=== PATIENT | male | born 1970 | race Caucasian/White ===

== ENCOUNTER 2017-09-05 12:17 | Emergency (ER) | payer OTHER ==
[~2017-09-05] VITALS: Ht 177.8 cm; Wt 102.1 kg
[~2017-09-05 12:17] MED LIST: ACYC800 PO; BACL10 PO; CEPH500 PO; CRUTCH4 USE; CYCL10; GABA400; HYDACE5 PO; HYDACE5325 PO; NAPR500 PO; NAPR500EC PO; PENVK250 PO; PREG200 PO; SULTRIDS PO; TRAM50 PO; Ultram50 MG PO
[2017-09-05] MEDS ORDERED: Naprosyn500 MG PO (13:37)
[2017-09-05] MEDS ORDERED: CYCL10 PO (13:37)
== END 2017-09-05 13:44 | disposition home or self-care (01) ==
LOC: ER 12:17
DX: G89.29 Other chronic pain (principal); M54.5 Low back pain; F17.200 Nicotine dependence, unspecified, uncomplicated
CPT/HCPCS: 96372; 99283-25; J1885

== ENCOUNTER 2024-08-08 07:06 | Inpatient (IN) | payer OTHER ==
[~2024-08-08] VITALS: Ht 180.3 cm; Wt 120.0 kg
[~2024-08-08 07:06] MED LIST changes: +Augmentin 875-1 EACH PO; +CYCL10 PO; +Naprosyn500 MG PO
[2024-08-08] MEDS ORDERED: NS 1,000 ML IV SCH (08:15)
[2024-08-08] MEDS ORDERED: Ketorolac Tromethamine 15mg Vial IV ONE (08:15)
[2024-08-08 08:29] LABS: BASOPHILS ABSOLUTE AUTO 0.12 K/mm3 (0.00-0.23); BASOPHILS PERCENT AUTO 1 % (0-2); EOSINOPHILS PERCENT AUTO 1 % (0-6); Hematocrit 44.1 % (37.0-53.0); Hemoglobin 15.4 g/dL (13.5-17.5); IMMATURE GRAN PERCENT AUTO 1 % (0-1); LYMPHOCYTES ABSOLUTE AUTO 1.72 K/mm3 (0.84-5.20); LYMPHOCYTES PERCENT AUTO 8 % (21-46); MONOCYTES ABSOLUTE AUTO 1.84 K/mm3 (0.16-1.47); MONOCYTES PERCENT AUTO 9 % (4-13); Mean Corpuscular HGB 28.8 pg (26.0-34.0); Mean Corpuscular HGB Conc 34.9 g/dL (31.5-36.5); Mean Corpuscular Volume 82 fL (80-100); NEUTROPHILS ABSOLUTE AUTO 17.34 K/mm3 (1.96-9.15); NEUTROPHILS PERCENT AUTO 82 % (41-73); Platelet Count 375 K/mm3 (150-400); RDW Coefficient Variation 12.6 % (11.7-14.2); RDW Standard Deviation 38.3 fL (35.1-46.3); Red Blood Cell Count 5.35 M/mm3 (4.30-5.90); White Blood Cell Count 21.22 K/mm3 (4.00-11.30)
[2024-08-08 08:47] LABS: Albumin, Blood 3.7 g/dL (3.4-5.0); Albumin/Globulin Ratio 0.8 (0.8-1.8); Bilirubin, Total 0.5 mg/dL (0.1-1.0); Calcium, Blood 10.2 mg/dL (8.5-10.1); Creatinine, Blood 0.71 mg/dL (0.60-1.20); Globulin, Blood 4.8 g/dL (2.2-4.0); Potassium, Blood 4.1 mmol/L (3.5-5.5); Total Protein, Blood 8.5 g/dL (6.4-8.2)
[2024-08-08] MEDS ORDERED: CefTRIAXone Sodium 1,000 MG in NS 100 ML IV ONE (09:15)
[2024-08-08 09:25] LABS: Source, Urine Voided
[2024-08-08 09:36] LABS: Appearance, Urine Clear (Clear); Bilirubin, Urine Neg (Neg); Blood, Urine Neg (Neg); Color, Urine Yellow (P-Yellow); Glucose Qualitative, Urine 4+ (Neg); Ketones, Urine Neg (Neg); Leukocyte Esterase, Urine Neg (Neg); Nitrite, Urine Neg (Neg); Protein, Urine 2+ (Neg); Specific Gravity, Urine 1.015 (1.003-1.022); Urobilinogen, Urine 1+ (Normal)
[2024-08-08 09:38] LABS: Bacteria Rare /hpf; Red Blood Cells, Urine 0-2 /hpf (0-2); Squamous Epithelial Cells Rare /hpf (Few); White Blood Cells, Urine 0-2 /hpf (0-5)
[2024-08-08] MEDS ORDERED: Vancomycin HCL 2,000 MG in NS 500 ML IV ONE (10:00)
[2024-08-08 10:26] LABS: U Amphetamine Screen Not Detected; U Barbituate Screen Not Detected; U Benzodiazapine Screen Not Detected; U Buprenorphine Screen Not Detected; U Cannabinoids Screen DETECTED; U Cocaine Screen Not Detected; U Methadone Screen Not Detected; U Methamphetamine Screen Not Detected; U Opiates Screen Not Detected; U Oxycodone Screen Not Detected; U Phencyclidine Screen Not Detected
[2024-08-08] MEDS ORDERED: Acetaminophen 500 MG Tab PO PRN (11:15)
[2024-08-08] MEDS ORDERED: OxyCODONE HCL 5 MG TAB PO PRN (11:15)
[2024-08-08] MEDS ORDERED: Lactated Ringer's 1,000 ML IV SCH (11:20)
[2024-08-08] MEDS ORDERED: Polyethylene Glycol 3350 17 gm PO PRN (11:20)
[2024-08-08] MEDS ORDERED: Ketorolac Tromethamine 15mg Vial IV PRN (14:00)
[2024-08-08 15:16] VITALS: BP 142/82
--- NOTE | 2024-08-08 17:43 | NUR ---
1600 WHEN PATIENT WAS ASKED ABOUT TOBACCO/IGNITION SOURCES BECAME UPSET WHEN INFORMED HE COULD NOT SMOKE. PT OFFERED NICOTINE PATCH IF ORDERED BY PHYSICIAN. PT DENIES HAVING CIGARETTES OR LIGHTERS WITH HIM BUT STATED "WHY ARE YOU ASKING ME THAT" PT INFORMED OF NO SMOKING, NO FLAMMABLES ALLOWED AT FACILITY. 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 PT INFORMED THAT THIS WILL BE RETURNED TO HIM AT DISCHARGE
[2024-08-08] MEDS ORDERED: Nicotine 21 MG PATCH TOP PRN (18:05)
[2024-08-08 19:16] VITALS: BP 136/77
[2024-08-08] MEDS ORDERED: Docusate Sodium/Senna 1 Tab PO SCH (21:00)
[2024-08-08] MEDS ORDERED: Lactobacil 2-S.Thermo-Bifido 1 1 Cap PO SCH (21:00)
[2024-08-08] MEDS ORDERED: NS 250 ML IV PRN (21:25)
[2024-08-08] MEDS ORDERED: Vancomycin HCL 2,000 MG in NS 500 ML IV SCH (22:00)
[2024-08-09] VITALS (11 sets, daily range): BP systolic 104–139; BP diastolic 57–89
--- NOTE | 2024-08-09 04:13 | NUR ---
SHIFT SUMMARY PATIENT NPO FOR PROCEDURE. ALERT ORIENTED AND INDEPENDENT IN ROOM. DENIES CHEST PAIN, SOB, AND N/V. AFEBRILE. REPORTED BACK PAIN X 2 AT ABSCESS SITE. OXYCODONE 5 MG GIVEN WITH GOOD EFFECT AND IV TORADOL 15 MG ALTERNATING. PIV INTACT. IV ABX INFUSED. NICOTINE PATCH PLACED PER ORDER AND PATIENT REPORTS ITS WORKING. CALL LIGHT IN REACH. BED IN LOWEST POSITION. WILL CONTINUE TO MONITOR UNTIL DAY SHIFT NURSE ASSUMES CARE.
[2024-08-09 04:53] LABS: Hemoglobin 12.8 g/dL (13.5-17.5); Mean Corpuscular HGB 28.8 pg (26.0-34.0); Mean Corpuscular HGB Conc 34.6 g/dL (31.5-36.5); Mean Corpuscular Volume 83 fL (80-100); Mean Platelet Volume 8.8 fL (9.1-12.4); Platelet Count 296 K/mm3 (150-400); RDW Coefficient Variation 12.6 % (11.7-14.2); RDW Standard Deviation 38.2 fL (35.1-46.3); Red Blood Cell Count 4.44 M/mm3 (4.30-5.90); White Blood Cell Count 16.01 K/mm3 (4.00-11.30)
--- NOTE | 2024-08-09 05:20 | NUR ---
PATIENT FEBRILE 100.8 AND TYLENOL 500 MG GIVEN PER EMAR. RECHECK 98.3. WCTM.
[2024-08-09 05:30] LABS: Albumin, Blood 2.8 g/dL (3.4-5.0); Anion Gap 6 mmol/L (3-11); Blood Urea Nitrogen 13 mg/dL (8-24); Bun/Creatinine Ratio 19.8 (12.0-20.0); CO2, Blood 25 mmol/L (21-32); Chloride, Blood 103 mmol/L (98-108); Creatinine, Blood 0.66 mg/dL (0.60-1.20); Glomerular Filtration Rate 114 (60-); Glucose, Blood 305 mg/dL (70-99); Magnesium, Blood 2.1 mg/dL (1.6-2.4); Phosphorus, Blood 2.7 mg/dL (2.5-4.9); Potassium, Blood 3.8 mmol/L (3.5-5.5); Sodium, Blood 130 mmol/L (136-145)
[2024-08-09] MEDS ORDERED: Multivitamins 1 Tab PO SCH (09:00)
[2024-08-09] MEDS ORDERED: Lactated Ringer's 1,000 ML IV SCH ×2 (10:05→10:50)
--- NOTE | 2024-08-09 10:25 | NUR ---
INTO SDS VIA WHEELCHAIR. PT REPORTS 4/10 PAIN TO UPPER BACK WOUND. INFECTIOUS DISEASE-JEFRY CONTACTED-STANDARD PRECAUTIONS REQUIRED. HISTORY AND ALLERGIES REVIEWED. LUNGS CLEAR. PT IS A SMOKER-DUO NEB GIVEN PER DR. DASH ORDER. NPO STATUS CONFIRMED.
[2024-08-09] MEDS ORDERED: Ipratropium/Albuterol SulF 2.5-0.5MG/3 ML Amp INH ONE (10:30)
--- NOTE | 2024-08-09 10:30 | NUR ---
#20 PIV TO RIGHT AC C/D/I-FLUSHES WELL.
[2024-08-09] MEDS ORDERED: propofoL 40 ML IV ONE (10:36)
[2024-08-09] MEDS ORDERED: Lidocaine HCl 1% 5 ML SYR INJ ONE (10:50)
[2024-08-09] MEDS ORDERED: HYDROmorphone HCl/Pf 1MG SYR IV PRN (10:50)
[2024-08-09] MEDS ORDERED: Albuterol 2.5 MG/3 ML VIAL INH ONE (10:50)
[2024-08-09] MEDS ORDERED: Morphine Sulfate 4 MG/1 ML Injection IV PRN (10:55)
[2024-08-09] MEDS ORDERED: FentaNYL Citrate 50 MCG/ML 2 ML Injection IV PRN (10:55)
[2024-08-09] MEDS ORDERED: Ondansetron HCl 2 MG / ML 2ML Vial IV PRN (10:55)
[2024-08-09] MEDS ORDERED: ePHEDrine Sulfate 50 MG/ML 1ML Injection IV PRN (10:55)
[2024-08-09] MEDS ORDERED: Ketorolac Tromethamine 30mg Vial IV PRN (11:00)
[2024-08-09] MEDS ORDERED: FentaNYL Citrate 50 MCG/ML 2 ML Injection ONE (11:00)
[2024-08-09] MEDS ORDERED: Bupivacaine 0.5% HCl 5 MG/ML 30MLVIAL ONE (11:14)
[2024-08-09] MEDS ORDERED: Metoclopramide HCl 5MG / ML 2ML Vial ONE (11:15)
[2024-08-09] MEDS ORDERED: Ondansetron HCl 2 MG / ML 2ML Vial ONE ×2 (11:15→11:38)
[2024-08-09] MEDS ORDERED: Insulin Human Lispro 100 Units/ML 3ML Syringe SC SCH (11:30)
[2024-08-09] MEDS ORDERED: Enoxaparin 40 MG/0.4 ML SYR SC SCH (12:00)
--- NOTE | 2024-08-09 18:32 | NUR ---
SHIFT SUMMARY: PATIENT A+0 X4. IND IN ROOM. PATIENT HAD I AND D DONE BY SODER. DRESSING TO L SHOULDER BLADE CDI. PATIENT NOTED TO COMPLAIN OF PAIN THIS SHIFT, MEDICATED PER EMAR. PATIENTS LUNGS CLEAR. S1 S2 HEARD ON ASCULATION. POSITIVE BLOOD CULTURES X1 c GRAM POSITIVE COCCI c CLUSTERS. PATIENT CONTINUES c ANTIBIOTICS. VANCO GIVEN EARLIER THIS AM IN SURG. SALINE LOCKED AT THIS TIME. PATIENT STARTED ON LOW SLIDING SCALE THIS SHIFT. INSULIN HAS BEEN DOSED ACCORDINGLY. PLAN OF CARE ONGOING.
[2024-08-09 21:27] LABS: Vancomycin, Trough 8.5 ug/mL (5.0-10.0)
[2024-08-09] MEDS ORDERED: Vancomycin HCL 1,500 MG in NS 250 ML IV SCH (22:00)
[2024-08-10 05:18] VITALS: BP 125/86
--- NOTE | 2024-08-10 05:40 | NUR ---
SHIFT SUMMARY PATIENT IS ALERT AND ORIENTED. PATIENT HAS HAD NO ACUTE EVENTS THIS SHIFT. VITAL SIGNS REVIEWED. PATIENT HAS BEEN IND IN ROOM. IV ABX INFUSED ORDERED. PATIENT HAS BEEN MEDICATED FOR PAIN PER EMAR. PATIENT HAS HAD NO COMPLAINTS OF SOB, NAUSEA OR VOMITTING THIS SHIFT. PATIENT HAS SLEPT MOST OF SHIFT. BED IN LOCKED AND LOWEST POSITION. CALL LIGHT IN PLACE.
[2024-08-10 07:14] VITALS: BP 132/81
[2024-08-10] MEDS ORDERED: Insulin Human Lispro 100 Units/ML 3ML Syringe SC SCH (07:30)
[2024-08-10 08:23] LABS: Hematocrit 38.9 % (37.0-53.0); Mean Corpuscular HGB 28.9 pg (26.0-34.0); Mean Corpuscular HGB Conc 33.4 g/dL (31.5-36.5); Mean Corpuscular Volume 86 fL (80-100); Platelet Count 312 K/mm3 (150-400); RDW Coefficient Variation 12.6 % (11.7-14.2); RDW Standard Deviation 39.9 fL (35.1-46.3); White Blood Cell Count 9.22 K/mm3 (4.00-11.30)
[2024-08-10 08:41] LABS: Albumin, Blood 2.9 g/dL (3.4-5.0); Anion Gap 5 mmol/L (3-11); Blood Urea Nitrogen 18 mg/dL (8-24); Bun/Creatinine Ratio 27.7 (12.0-20.0); CO2, Blood 31 mmol/L (21-32); Calcium, Blood 9.5 mg/dL (8.5-10.1); Chloride, Blood 101 mmol/L (98-108); Creatinine, Blood 0.65 mg/dL (0.60-1.20); Glomerular Filtration Rate 114 (60-); Glucose, Blood 376 mg/dL (70-99); Magnesium, Blood 2.2 mg/dL (1.6-2.4); Potassium, Blood 4.3 mmol/L (3.5-5.5); Sodium, Blood 133 mmol/L (136-145)
[2024-08-10] MEDS ORDERED: OXYC5 PO (13:57)
[2024-08-10] MEDS ORDERED: METF500 PO (13:58)
[2024-08-10] MEDS ORDERED: CEPH500 PO (13:58)
--- NOTE | 2024-08-10 14:28 | NUR ---
DISCHARGE NOTE PT DISCHARGED TO HOME, PICKED UP BY HIS SISTER. WOUND CARE ITEMS PROVIDED. MEDICATIONS FAXED TO THE PHARMACY OF HIS CHOICE. HARD SCRIPT PROVIDED. IV REMOVED. DISCHARGE INFORMATION AND EDUCATION PROVIDED.
== END 2024-08-10 14:34 | disposition home or self-care (01) | DRG 872 ==
LOC: ER 07:06 → MEDS 11:12
PROVIDERS: Physician Assistant; Surgery; ADMIT Internal Medicine
PROC: 3E03329 Introduction of Other Anti-infective into Peripheral Vein, Percutaneous Approach (ICD-10-PCS; 2024-08-08)
PROC: 0J970ZZ Drainage of Back Subcutaneous Tissue and Fascia, Open Approach (ICD-10-PCS; principal; 2024-08-09 11:00)
DX: A41.9 Sepsis, unspecified organism (principal); L02.212 Cutaneous abscess of back [any part, except buttock and flank]; L03.312 Cellulitis of back [any part except buttock and flank]; E87.1 Hypo-osmolality and hyponatremia; E11.65 Type 2 diabetes mellitus with hyperglycemia; E78.5 Hyperlipidemia, unspecified; F15.11 Other stimulant abuse, in remission; F17.210 Nicotine dependence, cigarettes, uncomplicated; Z86.14 Personal history of Methicillin resistant Staphylococcus aureus infection; Z98.890 Other specified postprocedural states
CPT/HCPCS: 36415; 71260; 80053; 80069; 80202; 81001; 82947; 83036; 83605; 83735; 85025; 85027; 87040; 87070; 87075; 87077; 87147; 87186; 87205; 96361; 96374-59; 96375; 99284-25; A9270; J0696; J1650; J1885; J2405; J2704; J2765; J3010; J3370; J7030; J7040; J7050; J7120; Q9967

== ENCOUNTER 2024-10-03 07:41 | Emergency (ER) | payer OTHER ==
[~2024-10-03] VITALS: Ht 180.3 cm; Wt 108.9 kg
[~2024-10-03 07:41] MED LIST changes: +METF500 PO; +OXYC5 PO
[2024-10-03 08:03] VITALS: BP 177/112
[2024-10-03] MEDS ORDERED: Lidocaine/Tetracaine/Epinephr 3 ML GEL SYRINGE TOP ONE (09:20)
[2024-10-03] MEDS ORDERED: AMOCLA875 PO (10:23)
== END 2024-10-03 10:40 | disposition home or self-care (01) ==
LOC: ER 07:41
DX: S91.114A Laceration without foreign body of right lesser toe(s) without damage to nail, initial encounter (principal); S91.011A Laceration without foreign body, right ankle, initial encounter; S81.811A Laceration without foreign body, right lower leg, initial encounter; E78.5 Hyperlipidemia, unspecified; F17.210 Nicotine dependence, cigarettes, uncomplicated; Z79.4 Long term (current) use of insulin; Z79.84 Long term (current) use of oral hypoglycemic drugs; Y04.8XXA Assault by other bodily force, initial encounter; Y93.84 Activity, sleeping
CPT/HCPCS: 12002; 99283-25; A9270